=== PATIENT | male | born 1990 | race Caucasian/White ===

== ENCOUNTER 2022-06-22 07:41 | Emergency (ER) | payer SELFPAY ==
[2022-06-22 07:49] VITALS: BP 137/99; PULSE 95; RESP 18; TEMP 37.1; O2SAT 98; BMI 36.2
--- NOTE | 2022-06-22 07:49 | PC.NURSE ---
pt placed in a gown for MD hutchison
--- NOTE | 2022-06-22 07:58 | PC.NURSE ---
skin at affected area assessed by this RN. very minimal redness noted around the area. spot noted to be scabbed over, no drainage assessed, spot is located to the right upper pubis.
--- NOTE | 2022-06-22 08:09 | PC.NURSE ---
at the bedside
--- NOTE | 2022-06-22 08:17 | HMH.EDGENADL ---
Discharge Plan Disposition Patient Disposition: Home, Self-Care Condition: Good Prescriptions Prescriptions: New valacyclovir [Valtrex] 1 gram tablet 1,000 mg PO BID 10 Days Qty: 20 0RF Referrals Follow up/Referrals: Provider,Referral, [Primary Care Provider] - See instructions Activity Restrictions/Add. Instructions Additional Instructions/Restrictions: Take Valtrex as prescribed. Your examination suggests a genital herpes infection. A herpes culture has been sent and you should follow-up the results of this test. Additional instructions for GENITAL HERPES INFECTION: See your physician as soon as possible for further evaluation and follow-up of culture results. Return immediately if fever greater than 102 degress, repetitive vomiting, sores in eyes or ears, inability to urinate, or intolerable pain. Do not have intercourse until all sores are healed and scabs are gone. This usually takes about 2 wks. In the future, pain in the back, buttocks or genitals may be a warning of the beginning of a breakout. If you experience these symptoms, you should avoid intercourse for several days to determine if a breakout is occuring. Please note that viral shedding and transmission may occur even if no sores are visible. It is safest to always use a condom when having intercourse. For females: If you become , you need to let your dairy products maker know that you have genital herpes as it may affect your and delivery. Babies can contract herpes as they pass through the vagina during delivery and develop a life-threatening infection. You are being provided with a list of physicians available for follow-up of your condition. Please call a physician on this list to arrange a follow-up appointment as soon as possible. Clinical Impressions Clinical Impression: Vesicular eruption of skin Discharge ED Provider: Aman Thomas General Adult HPI General Chief complaint: Skin/Abscess/Foreign Body Stated complaint: sore lower male area Time Seen by Provider: 06/22/22 08:05 Mode of Arrival: Ambulatory Source of Information: Patient Limitations: No Limitations Description of Symptoms (Recalled from ER Triage Doc. by RN): pt to ed c/o abscess to the right side of his groin. pt states he alycia noticed the irritation last week sometime/ pt states it is tender to the touch. pt reports the redness has not appeared to get any larger in diameter. pt states the abscess is draining a clear fluid. pt denies any recent fevers associated. History of Present Illness HPI narrative: States he started with a sore that looked like a pimple on the right side of his groin a about a week ago. He states that it has not improved. It is draining clear fluid. He thinks it may be a staph infection. He has had a prior staph infection on his forearm. No fever. Related Data Previous Rx's Medication Instructions Recorded valacyclovir 1 gram tablet 1,000 mg PO BID 10 days #20 tabs 06/22/22 (Valtrex) Allergies Allergy/AdvReac Type Severity Reaction Status Date / Time Penicillins Allergy Verified 06/22/22 07:56 [facility] Medical History (Updated 06/22/22 @ 08:44 by Aman Thomas MD) No significant past medical history Social History Smoking Status: Current every day smoker ROS Obtained: Yes Systems reviewed as appropriate & no additional complaints except as documented Constitutional Constitutional: Denies fever(s) Integumentary/Breasts Skin/Breast: Reports new lesions Physical Exam General General appearance: alert and in no apparent distress Chest Chest inspection: Present normal inspection and symmetric chest wall rise Respiratory Respiratory exam: Absent respiratory distress Cardiovascular Cardiovascular exam: Present regular rate Expanded Exam Male Image: 1. Grouping of both ruptured and intact vesicles with clear fluid. No surrounding cellulitis. No abscess. Findings most consi
[2022-06-22 08:30] VITALS: BP 131/87; PULSE 94; RESP 18; O2SAT 99
--- NOTE | 2022-06-22 08:42 | PC.NURSE ---
swabs sent to lab by Dr Thomas
[2022-06-22 08:56] VITALS: BP 134/89; PULSE 90; RESP 18; TEMP 37.1; O2SAT 99
== END 2022-06-22 08:56 | disposition home or self-care (01) ==
PROVIDERS: Emergency Provider Emergency Medicine
DX: L08.89 Other specified local infections of the skin and subcutaneous tissue; B95.61 Methicillin susceptible Staphylococcus aureus infection as the cause of diseases classified elsewhere; Z16.11 Resistance to penicillins
CPT/HCPCS: 87070; 87077; 87186; 87205; 87252; 99282

== ENCOUNTER 2025-03-12 19:06 | Emergency (ER) | payer OTHER, SELFPAY ==
[2025-03-12 20:02] VITALS: BP 127/75; PULSE 94; RESP 16; TEMP 36.6; O2SAT 100; BMI 39.0
--- NOTE | 2025-03-12 20:17 | HMH.EDGENADL ---
Discharge Plan Disposition Patient Disposition: Home, Self-Care Condition: Good Prescriptions Prescriptions: No Action valacyclovir [Valtrex] 1 gram tablet 1,000 mg PO BID 10 Days Qty: 20 0RF sulfamethoxazole-trimethoprim [Bactrim DS] 800-160 mg tablet 1 tab PO BID Qty: 20 0RF Activity Restrictions/Add. Instructions Additional Instructions/Restrictions: You were evaluated in the emergency department today. Please keep your wound clean and dry. Do not fully submerge under any water, as it can increase risk of infection. Apply antibiotic ointment twice daily and apply a nonadherent dressing. Follow-up close with your primary care provider for wound recheck. Return to the emergency department for new or worsening symptoms. Clinical Impressions Clinical Impression: Abrasion of leg, right Stand Alone Forms Stand Alone Forms: Work/School Release Instructions Patient Instructions: DI for Abrasion Print Language Print Language: Haitian Discharge ED Provider: Sharyn Rice General Adult HPI General Chief complaint: Wound/Laceration Stated complaint: AO 03/12/25 1800 fell laceration right leg Time Seen by Provider: 03/12/25 20:02 Mode of Arrival: Ambulatory Source of Information: Patient Description of Symptoms (Recalled from ER Triage Doc. by RN): Pt presents for eval of skin tear ro right michaud that occurred prior to arrival while getting out of shower at home. Pt reports slipping and cutting leg on bottom of shower door. No bleeding at time of triage, well approximated edges. History of Present Illness HPI narrative: This patient is a 34-year-old male who denies significant past medical history presenting to the emergency department for evaluation with concern for abrasion to the right lower leg. Patient reports that he slipped and fell in the shower. He did not hit his head or lose consciousness. No pain elsewhere. He is unsure when his last tetanus shot was. Related Data Previous Rx's ?Medication ?Instructions ?Recorded valacyclovir 1 gram tablet 1,000 mg PO BID 10 days #20 tabs 06/22/22 (Valtrex) sulfamethoxazole 800 1 tab PO BID #20 tabs 06/25/22 mg-trimethoprim 160 mg tablet (Bactrim DS) Allergies Allergy/AdvReac Type Severity Reaction Status Date / Time Penicillins Allergy Verified 06/22/22 07:56 [facility] Disclaimer: The information contained in this section may have been updated after the patient was seen, as this information can be updated by other users. Medical History No significant past medical history Social History Smoking Status: Never smoker alcohol intake: never current occupational status: employed Travel in the last 8 weeks?: None ROS Obtained: Yes All systems reviewed & no additional complaints except as documented Physical Exam General General appearance: alert and in no apparent distress Head Head exam: atraumatic and normocephalic Eye Eye exam: Present normal appearance, PERRL and EOMI ENT ENT exam: Present normal exam, normal oropharynx, mucous membranes moist and normal external ear exam Neck Neck exam: Present normal inspection, full ROM and trachea midline; Absent tenderness Chest Chest inspection: Present normal inspection and symmetric chest wall rise; Absent tenderness Respiratory Respiratory exam: Present normal lung sounds bilaterally; Absent respiratory distress, wheezes, stridor or accessory muscle use Cardiovascular Cardiovascular exam: Present regular rate and normal rhythm Abdominal Exam Abdominal exam: Present soft; Absent distention, tenderness or guarding Extremities Exam Extremities exam: Present full ROM and normal capillary refill; Absent tenderness or edema Expanded Lower Extremity Exam Right: Leg image:  1. Superficial curvilinear abrasion. Neurovascular intact distally Back Exam Back exam: Present normal inspection and full ROM; Absent tenderness Neurological Exam Neurological exam: Present alert, oriented X3, CN II-XII intact and normal gait; Absent motor sensory deficit Psychiatric Psychiatric exam: Present normal affect and normal mood Skin Skin exam: Present warm and dry Medical Decision Making Medical Records Medical records reviewed: Yes I reviewed the patient's medical records. Screening: Per USPSTF and CDC recommendations, given the prevalence of disease in our region, it is our hospital?s policy to screen for HIV and viral Hepatitis for all patients aged 18 and over and those with ongoing risk factors. Geovany Inquiry Pt receiving controlled substance: No Vital Signs: 03/12/25 20:02 Temperature 97.8 F Temperature Source Oral Pulse Rate [Right Radial] 94 H Respiratory Rate 16 Blood Pressure [Right Arm] 127/75 Blood Pressure Mean [Right Arm] 92 Blood Pressure Position [Right Arm] Sitting 02 Sat by Pulse Oximetry 100 Oxygen Delivery Method Room Air Lab Data Lab results reviewed: Yes I reviewed the patient's lab results. Orders (Tests/Meds): ED MEDICATIONS Generic Name Dose Route Start Last Admin Trade Name Jamison PRN Reason Stop Dose Admin Bacitracin 1 gm 03/12/25 20:15 Bacitracin Zinc Oint 30gm Tube TP 03/12/25 20:16 ONCE ONE Tetanus/Reduced Diphtheria/Acell Pertussis 0.5 ml 03/12/25 20:15 Tet/Diphth/Pert-Adult 0.5ml Syringe IM 03/12/25 20:16 .ONCE ONE Medical Decision Narrative: In summary, this patient is a 34-year-old male presenting to the Emergency Department for evaluation of abrasion of the right lower leg after a fall in the shower. Differential diagnoses considered include but are not limited to laceration, abrasion, foreign body, polytrauma. Ruling out the most morbid conditions drove assessment. On exam, the patient is well-appearing. He has no other traumatic injury noted on clinical exam. He has a superficial abrasion to the right lower leg that I do not feel requires any sort of repair. He is neurovascularly intact distally. He was given Tdap booster. Wound was dressed with bacitracin and Vaseline gauze and was discharged with strict return precautions and wound care. Critical Care Critical Care Time Critical Care Time: No
[2025-03-12] MEDS: TET/DIPHTH/PERT-ADULT 0.5ML SYRINGE 0.5 ML IM (20:23)
[2025-03-12] MEDS: BACITRACIN ZINC OINT 30GM TUBE TP (20:25)
[2025-03-12 20:40] VITALS: BP 125/72; PULSE 86; RESP 18; TEMP 36.6; O2SAT 99
== END 2025-03-12 20:42 | disposition home or self-care (01) ==
PROVIDERS: Emergency Provider Emergency Medicine
DX: S80.811A Abrasion, right lower leg, initial encounter (principal); W18.2XXA Fall in (into) shower or empty bathtub, initial encounter; Z23 Encounter for immunization
CPT/HCPCS: 90471; 90715; 99283